=== PATIENT | female | born 1965 | race Hispanic/Latino ===

== ENCOUNTER 2016-10-24 17:46 | Emergency (ER) | payer OTHER ==
[~2016-10-24] VITALS: Ht 154.9 cm; Wt 70.8 kg
[~2016-10-24 17:46] MED LIST: IBUPROFEN800 M1 PO
--- NOTE | 2016-10-24 19:45 | ED MVC/FALL/TRAUMA COMPLAINT ---
History of Present Illness General Chief Complaint: Fall Stated Complaint: DIZZY,[place] S/P FALL Source: patient, family Exam Limitations: no limitations Vital Signs & Intake/Output Vital Signs & Intake/Output Vital Signs Date Time Temp Pulse Resp B/P Pulse O2 O2 Flow FiO2 Ox Delivery Rate 10/24 1826 97.8 95 20 149/93 98 Room Air Allergies Coded Allergies: MDX - Sulfamethoxazole (From BACTRIM) (THROAT SWELLING 06/08/12) MDX - Trimethoprim (From BACTRIM) (THROAT SWELLING 06/08/12) lidocaine (UNKNOWN 04/21/16) Reconcile Medications Ibuprofen 800 MG TABLET 1 TAB PO TID PRN PAIN Triage Note: FELL ON 10/20 AT WORK (SLIPPED ON ICE). SEEN AT A [facility]ALK[facility], HAD C SPINE XRAY DONE. C/O WORSENING DIZZINESS AND Triage Nurses Notes Reviewed? yes Onset: Abrupt Duration: day(s): (4) Timing: recent history Severity: moderate Injuries/Fall Location: head, UPPER BACK Modifying Factors: Worsens With: movement. HPI: This is a 51 year old female who prsents to the ED for chief complaint of headache, dizziness and nausea since fall on the ice on . She hit the back of her head. No reported loss of consciousness. She went to the doctor that day and they did some x-rays of her neck and thorax. She states that in color back and his symptoms then x-rays are negative. Since then she has felt dizzy, nauseous. No vomiting. He reports some difficulty concentrating and some blurred vision. She is not on any blood thinners. Today her doctor told her that if she wasn't better to come to the ER for evaluation. Past History Travel History Traveled to [place] past 21 day No Medical History Any Pertinent Medical History? see below for history Neurological: NONE EENT: NONE Cardiovascular: NONE Respiratory: NONE Gastrointestinal: GERD Hepatic: NONE Renal: NONE Musculoskeletal: NONE Psychiatric: NONE Endocrine: NONE Surgical History Surgical History: non-contributory Psychosocial History What is your primary language Wolof Tobacco Use: Never used ETOH Use: denies use Family History Hx Contributory? No Review of Systems Review of Systems Constitutional: Denies: chills, fever. Eyes: Denies: blurred vision. Ears, Nose, Throat, Mouth: Reports: no symptoms. Respiratory: Denies: cough, short of breath, sputum production. Cardiovascular: Denies: chest pain, palpitations. Gastrointestinal/Abdominal: Reports: nausea. Denies: vomiting. Genitourinary: Reports: no symptoms. Musculoskeletal: Reports: no symptoms. Skin: Reports: no symptoms. Neurological/Psychological: Reports: see HPI (dizziness), headache. Denies: ataxia, confusion. All Other Systems: Reviewed and Negative Physical Exam Physical Exam General Appearance: well developed/nourished, alert, awake, anxious Head: atraumatic, normal appearance, OCCIPITAL TENDERNESS Eyes: Bilateral: normal appearance, PERRL, EOMI. Ears, Nose, Throat, Mouth: hearing grossly normal, moist mucous membrane Neck: normal inspection, supple, full range of motion Respiratory: normal breath sounds, chest non-tender, no respiratory distress Cardiovascular: regular rate/rhythm Peripheral Pulses: 2+ radial (R), 2+ radial (L) Gastrointestinal: normal bowel sounds, soft, non-tender Extremities: normal range of motion Neurologic/Psych: no motor/sensory deficits, awake, alert, oriented x 3 Core Measures ACS in differential dx? No Severe Sepsis Present: No Septic Shock Present: No Progress Differential Diagnosis: ICH, CONCUSSION Plan of Care: Orders Procedure Date/time Status MISTAKE 10/[address] NEGATIVE. PRESENTATION CONSISTENT WITH CONCUSSION. (DEANDRE NOVA,PAT) Diagnostic Imaging: Viewed by Me: CT Scan. Discussed w/RAD: CT Scan. Radiology Impression: PATIENT: RANDY VAZQUEZ PRESENT AGE: 51 PATIENT ACCOUNT NO: [id number] : 64 LOCATION: [facility] ORDERING PHYSICIAN: PTA CARRERA MD SERVICE DATE: 10/24/16 EXAM TYPE: CAT - CT HEAD WO IV CONTRAST EXAMINATION: CT HEAD WITHOUT CONTRAST CLINICAL INFORMATION: Rule out bleed. Concussion after fall. COMPARISON: None TECHNIQUE: Contiguous axial imaging was performed from the skull base to vertex without intravenous administration of contrast. DLP: 529.16 mGy-cm FINDINGS: There is no evidence of acute intracranial hemorrhage or territorial infarction. No abnormal mass effect or midline shift is seen. Dash to white matter differentiation is well preserved. No extra-axial fluid collections are identified. The ventricles are normal in size. There is no abnormal attenuation within the brain parenchyma. The osseous structures and soft tissues are normal. The mastoid air cells and visualized portions of the paranasal sinuses are well aerated. IMPRESSION: No acute intracranial pathology. DICTATED BY: KASANDRA WARREN MD DATE/TIME DICTATED:10/24/162049 FLATBED DRIVER:MERYL DATE/TIME TRANSCRIBED:2049 CONFIDENTIAL, DO NOT COPY WITHOUT APPROPRIATE AUTHORIZATION. < Electronically signed in Other Vendor System> SIGNED BY: KASANDRA WARREN MD 10/24/162054 Departure Departure Time of Disposition: 2113 Disposition: HOME OR SELF CARE Condition: Stable Clinical Impression Primary Impression: Concussion Referrals: JOHNSON NOVA,ROEL LOPEZ MD,LUCILLE (PCP/Family) Additional Instructions: If your symptoms persist beyond one week please follow-up with the neurology specialist listed. Take Tylenol as needed for headache. Return to the ER for any changing or worsening symptoms. Departure Forms: Customer Survey General Discharge Information
--- NOTE | 2016-10-24 20:55 | CT SCAN REPORT ---
EXAMINATION: CT HEAD WITHOUT CONTRAST CLINICAL INFORMATION: Rule out bleed. Concussion after fall. COMPARISON: None TECHNIQUE: Contiguous axial imaging was performed from the skull base to vertex without intravenous administration of contrast. DLP: 529.16 mGy-cm FINDINGS: There is no evidence of acute intracranial hemorrhage or territorial infarction. No abnormal mass effect or midline shift is seen. Dash to white matter differentiation is well preserved. No extra-axial fluid collections are identified. The ventricles are normal in size. There is no abnormal attenuation within the brain parenchyma. The osseous structures and soft tissues are normal. The mastoid air cells and visualized portions of the paranasal sinuses are well aerated. IMPRESSION: No acute intracranial pathology.
[2016-10-24 21:23] VITALS: BP 148/80
== END 2016-10-24 21:24 ==
LOC: ERH 17:46
DX: S06.0X0A Concussion without loss of consciousness, initial encounter (principal); W00.0XXD Fall on same level due to ice and snow, subsequent encounter